=== PATIENT | male | born 1995 | race Caucasian/White ===

== ENCOUNTER → 2017-06-02 | Outpatient (CLI) | payer BC ==
[2017-06-07 00:08] LABS: D002-IGE D FARINAE MITE >100 kU/L (Class VI); E005-IGE DOG DANDER/HAIR/EPITH >100 kU/L (Class VI); F076-IGE ALPHA LACTALBUMIN 0.28 kU/L (Class 0/I); M003-IGE D pteronyssinus >100 kU/L (Class VI)
[2017-06-08 00:06] LABS: F003-IGE CODFISH 0.68 kU/L (Class II); F012-IGE GREEN PEA 5.43 kU/L (Class IV); F037-IGE MUSSEL 0.83 kU/L (Class II); F040-IGE TUNA 1.82 kU/L (Class III); F041-IGE SALMON 0.26 kU/L (Class 0/I); F077-IGE LACTOGLOBULIN, BETA 0.45 kU/L (Class I); F078-IGE CASEIN 0.47 kU/L (Class I); F081-IGE CHEDDAR CHEESE 0.41 kU/L (Class I); F083-IGE CHICKEN 0.98 kU/L (Class II); F087-IGE MELON 7.49 kU/L (Class IV); F089-IGE MUSTARD 6.46 kU/L (Class IV); F092-IGE BANANA 8.15 kU/L (Class IV); F236-IGE WHEY 0.78 kU/L (Class II); F329-IGE WATERMELON 7.16 kU/L (Class IV); F338-IgE Oyster 2.93 kU/L (Class III)
[2017-06-11 16:28] LABS: D002-IGE D FARINAE MITE >100 kU/L (Class VI)
[2017-06-11 16:30] LABS: T003-IGE COMMON SILVER BIRCH >100
[2017-06-11 16:31] LABS: F210-IGE PINEAPPLE 6.33; F269 IGE BASIL 0.51; F283-IGE OREGANO 1.23
[2017-06-11 16:32] LABS: F220-IGE CINNAMON 0.53; F265-IGE CUMIN 5.68; F273-IGE THYME 3.46; F278-IGE BAYLEAF (LAUREL) 0.56; F339-IGE ALLSPICE 0.65
[2017-06-11 16:33] LABS: F002-IgE Milk 1.45; IGE CORIANDER/CILANTRO 9.85
[2017-06-11 16:34] LABS: F014-IgE Soybean 8.53; F018-IgE Brazil Nut 8.57; F027-IgE Beef 0.75; F202-IgE Cashew Nut 4.91; F245-IgE Egg, Whole 5.49; FX02-IgE Food Mix (Sea Foods) POSITIVE
[2017-06-11 16:36] LABS: IGE BLACK BEAN 1.66; W017-IgE Kochia(Firebush) 9.03
== END ==
LOC: M WUC 14:05
DX: J30.9 Allergic rhinitis, unspecified (principal); L27.2 Dermatitis due to ingested food
CPT/HCPCS: 86003

== ENCOUNTER → 2017-08-07 | Outpatient (CLI) | payer BC ==
[2017-08-07 17:08] LABS: BASO # 0.1 10^3/uL (0.0-0.2); BASO % 0.5 % (0.0-1.0); EOS # 0.8 10^3/uL (0.0-0.50); EOS % 5.8 % (0.0-3.0); HEMATOCRIT 47.8 % (42.0-52.0); HEMOGLOBIN 15.6 g/dl (14.0-18.0); IMMATURE GRANULOCYTE % 0.4 % (0-3.0); LYMPH # 0.8 10^3/uL (1.5-6.5); LYMPH % 6.1 % (24.0-44.0); MEAN CORPUSCULAR HEMOGLOBIN 29.7 pg (27.0-33.0); MEAN CORPUSCULAR HGB CONC 32.6 g/dl (32.0-36.5); MEAN CORPUSCULAR VOLUME 90.9 fl (80.0-96.0); MONO # 1.9 10^3/uL (0.0-0.8); MONO % 14.1 % (0.0-5.0); NEUTROPHILS # 9.8 10^3/uL (1.8-7.7); NEUTROPHILS % 73.1 % (36.0-66.0); PLATELET COUNT, AUTOMATED 285 10^3/uL (150-450); RED BLOOD COUNT 5.26 10^6/uL (4.30-6.10); RED CELL DISTRIBUTION WIDTH 14.5 % (11.5-14.5); WHITE BLOOD COUNT 13.4 10^3/uL (4.0-10.0)
== END ==
LOC: M WUC 11:40
DX: R50.9 Fever, unspecified (principal)
CPT/HCPCS: 85025

== ENCOUNTER → 2018-11-22 | Outpatient (REF) | payer BC ==
[~2018-11-22] MED LIST: ADV250INH INH; ALBU17IN INH; ESCI10TA2 PO; TRAZ-252 PO
[2018-11-22 18:09] LABS: CHLAMYDIA DNA AMPLIFICATION NEGATIVE (NEGATIVE); GC DNA AMPLIFICATION NEGATIVE (NEGATIVE)
== END ==
LOC: M LAB REF 15:20
PROVIDERS: ATTEND Physician Assistant
DX: Z11.3 Encounter for screening for infections with a predominantly sexual mode of transmission (principal)

== ENCOUNTER → 2020-05-14 | Outpatient (REF) | payer BC | LOC: M LAB REF 16:04 | PROVIDERS: ATTEND Physician Assistant Medical | DX: Z11.59 Encounter for screening for other viral diseases (principal) ==

== ENCOUNTER → 2020-10-16 | Outpatient (REF) | payer BC ==
[~2020-10-16] MED LIST changes: +ESCI10TA16 PO; -ESCI10TA2 PO
== END ==
LOC: M LAB REF 19:50
PROVIDERS: ATTEND Physician Assistant
DX: R30.0 Dysuria (principal); Z20.2 Contact with and (suspected) exposure to infections with a predominantly sexual mode of transmission

== ENCOUNTER → 2020-11-13 | Outpatient (REF) | payer BC ==
[2020-11-13 18:41] LABS: AMORPHOUS SEDIMENT SMALL (NEGATIVE); APPEARANCE, URINE HAZY (CLEAR); BACTERIA, URINE AUTO NEGATIVE (NEGATIVE); BILIRUBIN, URINE AUTO NEGATIVE (NEGATIVE); BLOOD, URINE BLOOD NEGATIVE (NEGATIVE); COLOR, URINE YELLOW (YELLOW); GLUCOSE, URINE (UA) AUTO NEGATIVE (NEGATIVE); KETONE, URINE AUTO NEGATIVE (NEGATIVE); LEUKOCYTE ESTERASE, URINE AUTO NEGATIVE (NEGATIVE); MUCUS, URINE SMALL (NEGATIVE); NITRITE, URINE AUTO NEGATIVE (NEGATIVE); PROTEIN, URINE AUTO NEGATIVE (NEGATIVE); RBC, URINE AUTO 1 /HPF (0-3); SPECIFIC GRAVITY URINE AUTO 1.024 (1.002-1.035); SQUAMOUS EPITHELIAL CELL UR AU 0 /HPF (0-6); UROBILINOGEN, URINE AUTO 0.2 mg/dL (0.0-2.0); WBC, URINE AUTO 0 /HPF (0-3)
== END ==
LOC: M LAB REF 17:16
PROVIDERS: ATTEND Physician Assistant
DX: N39.0 Urinary tract infection, site not specified (principal)